=== PATIENT | male | born 1970 | race Hispanic/Latino ===

== ENCOUNTER → 2025-01-27 | Day surgery (SDC) | payer BC ==
[~2025-01-27] MED LIST: ADDERALL 30 MG30 MG PO; AMLODIPINE BESY10 MG PO; ICOSAPENT ETHYL1 GM PO; LIPITOR10 MG PO
[2025-01-27] MEDS: LACTATED RINGER'S 1,000 ML ONE (06:19)
[2025-01-27 08:14] VITALS: TEMP 97.7
[2025-01-27 08:35] VITALS: BP 125/82; PULSE 81; RESP 18; O2SAT 99
== END | disposition home or self-care (01) ==
LOC: OR 06:00
PROVIDERS: ATTEND Internal Medicine Gastroenterology
DX: Z12.11 Encounter for screening for malignant neoplasm of colon (principal); D12.2 Benign neoplasm of ascending colon; D12.4 Benign neoplasm of descending colon; K62.1 Rectal polyp; K57.30 Diverticulosis of large intestine without perforation or abscess without bleeding; K64.8 Other hemorrhoids; I10 Essential (primary) hypertension; Z71.89 Other specified counseling; E78.00 Pure hypercholesterolemia, unspecified; Z88.2 Allergy status to sulfonamides; Z01.810 Encounter for preprocedural cardiovascular examination; Z79.899 Other long term (current) drug therapy; Z68.35 Body mass index [BMI] 35.0-35.9, adult; Z71.3 Dietary counseling and surveillance
CPT/HCPCS: 45385; 93005; J7121